=== PATIENT | female | born 1950 | race Caucasian/White ===

== ENCOUNTER 2024-08-15 08:30 | Outpatient (RCR) | payer MEDICARE, SELFPAY | END 2024-12-13 23:59 | disposition home or self-care (01) | PROVIDERS: PCP Family Medicine; Visit Provider Psychiatry & Neurology Neurology | DX: G20.C Parkinsonism, unspecified (principal); Z51.89 Encounter for other specified aftercare | CPT/HCPCS: 97110; 97112; 97116; 97140; 97162 ==